=== PATIENT | male | born 1945 | race Caucasian/White ===

== ENCOUNTER 2020-11-29 08:10 | Outpatient (REF) | payer MEDICARE, SELFPAY ==
--- NOTE | 2020-11-29 08:14 | CT_ITS ---
EXAMINATION: CT CHEST SCREENING CLINICAL INFORMATION: Nicotine dependence. Follow-up. COMPARISON: CT chest 11/26/2019. TECHNIQUE: Multidetector volumetric CT imaging of the chest is performed without contrast using low dose technique. Additional 2D coronal and sagittal reformatted images and axial 3D maximum intensity projection (MIP) images are generated on the CT workstation. This CT examination was performed using dose optimization techniques as appropriate, variously including the following: *Automated exposure control *Adjustment of mA and/or kV according to patient size (this includes techniques or standardized protocols for targeted exams where dose is matched to indication/reason for exam; i.e. extremities or head) *Use of iterative reconstruction technique DLP: 61 mGy-cm. FINDINGS: LUNGS: The lungs are well expanded and clear of acute pneumonic consolidation. There is a 2 mm nodule right upper lobe, axial image 12/5, stable. No additional pulmonary nodules seen. There is no mass or consolidation. There is band-like atelectasis in the anterobasal segment left lower lobe. MEDIASTINUM: Heart size and the great vessels are normal caliber. Central trachea and the bronchial airway are widely patent. No abnormal-sized mediastinal lymph nodes or mass seen. Ascending aorta is normal caliber. No pericardial effusion seen. PLEURA: There is no pleural effusion. No pleural mass or thickening. AXILLA: No lymphadenopathy. UPPER ABDOMEN: Visualized liver, spleen, pancreas and bilateral adrenal glands are unremarkable. OSSEOUS STRUCTURES: There is mild ventricles calcification of anterior longitudinal ligament in mid thoracic spine. No fracture or lytic process seen. There are large T12-L1 and L1-L2 bridging osteophytes. CT/CT lung screening IMPRESSION: No acute process. 2 mm nodule right upper lobe, stable. Band-like atelectasis left lower lobe. ASSESSMENT: Lung-RADS category 2: Benign. RECOMMENDATION: Low-dose annual CT chest exam.
== END 2020-11-29 08:11 | disposition home or self-care (01) ==
LOC: HO.CT 08:10
PROVIDERS: PCP Internal Medicine; Visit Provider Physician Assistant Medical
DX: Z12.2 Encounter for screening for malignant neoplasm of respiratory organs (principal); F17.210 Nicotine dependence, cigarettes, uncomplicated
CPT/HCPCS: 71271

== ENCOUNTER 2021-05-31 07:41 | Outpatient (REF) | payer MEDICARE, SELFPAY ==
[2021-05-31 11:33] LABS: Alanine Aminotransferase 16 U/L (0-40); Albumin Level 3.8 g/dL (3.5-5.0); Alkaline Phosphatase 69 U/L (39-117); Anion Gap 14 (12-20); Aspartate Amino Transferase 17 U/L (5-37); Bilirubin Total 0.6 mg/dL (0.0-1.0); Blood Urea Nitrogen 12 mg/dL (9-16); Calcium 9.5 mg/dL (8.4-10.2); Carbon Dioxide 27 mmol/L (22-29); Chloride 103 mmol/L (96-108); Cholesterol 155 mg/dL; Estimated Glomerular Filt Rate > 60; Glucose Fasting 119 mg/dL (60-99); HDL Cholesterol 46 mg/dL; LDL Cholesterol Calculated 95 mg/dl; Potassium 4.6 mmol/L (3.3-5.1); Sodium 139 mmol/L (135-145); Total Protein 9.5 g/dL (6.5-8.0); Triglycerides 72 mg/dL
== END 2021-05-31 07:42 | disposition home or self-care (01) ==
LOC: HO.HMGCLDS 07:41
PROVIDERS: PCP Internal Medicine; Visit Provider Internal Medicine
DX: I10 Essential (primary) hypertension (principal)
CPT/HCPCS: 36415; 80053; 80061

== ENCOUNTER 2021-10-31 09:37 | Outpatient (REF) | payer MEDICARE, SELFPAY ==
[2021-10-31 11:33] LABS: MANUAL DIFF FLAG NO
[2021-10-31 11:40] LABS: Basophils Absolute Auto 0.1 X10*3/uL (0.0-0.2); Basophils Percent Auto 1.5 % (0-2); Eosinophils Absolute Auto 0.2 X10*3/uL (0.0-0.4); Eosinophils Percent Auto 3.6 % (0-4); Hemoglobin 16.1 g/dl (14.0-18.0); Imm Gran Abs Auto 0.03 X10*3/uL (0.00-0.03); Imm Gran Pct Auto 0.5 % (0.0-0.4); Lymphocytes Percent Auto 32.1 % (20-40); Mean Corpuscular HGB Conc 32.2 g/dl (31.0-36.0); Mean Corpuscular Hemoglobin 31.3 pg (27.0-33.0); Mean Corpuscular Volume 97.1 fL (80.0-98.0); Mean Platelet Volume 9.5 fL (9.4-12.4); Monocytes Absolute Auto 0.8 X10*3/uL (0.1-1.2); Monocytes Percent Auto 12.7 % (2-11); Neutrophils Percent Auto 49.6 % (45-73); Platelet Count 295 X10*3/uL (160-400); Red Blood Count 5.15 X10*6/uL (4.60-5.80); Red Cell Distribution Width 11.9 % (11.0-16.0); White Blood Count 6.1 X10*3/uL (4.8-10.8)
[2021-10-31 11:53] LABS: Estimated Average Glucose 114 mg/dL; Hemoglobin A1c % 5.6 %
[2021-10-31 11:58] LABS: Alanine Aminotransferase 25 U/L (0-40); Albumin Level 3.8 g/dL (3.5-5.0); Alkaline Phosphatase 73 U/L (39-117); Anion Gap 11 (12-20); Aspartate Amino Transferase 20 U/L (5-37); Bilirubin Total 0.6 mg/dL (0.0-1.0); Blood Urea Nitrogen 14 mg/dL (9-16); Calcium 9.7 mg/dL (8.4-10.2); Carbon Dioxide 31 mmol/L (22-29); Chloride 101 mmol/L (96-108); Cholesterol 173 mg/dL; Estimated Glomerular Filt Rate > 60; Glucose Fasting 101 mg/dL (60-99); HDL Cholesterol 50 mg/dL; LDL Cholesterol Calculated 100 mg/dl; Potassium 4.6 mmol/L (3.3-5.1); Sodium 138 mmol/L (135-145); Total Protein 9.6 g/dL (6.5-8.0); Triglycerides 115 mg/dL
[2021-11-02 03:51] LABS: IgA 58 mg/dL (70-320); IgG 570 mg/dL (600-1540); IgM 4468 mg/dL (50-300)
== END 2021-10-31 09:38 | disposition home or self-care (01) ==
LOC: HO.HMGCLDS 09:37
PROVIDERS: PCP Internal Medicine; Visit Provider Internal Medicine
DX: R73.01 Impaired fasting glucose (principal); C88.0 Waldenstrom macroglobulinemia; I10 Essential (primary) hypertension
CPT/HCPCS: 36415; 80053; 80061; 82784; 83036; 85025

== ENCOUNTER → 2021-11-22 09:01 | Outpatient (BNV) | payer MEDICARE, SELFPAY | PROVIDERS: PCP Internal Medicine; Visit Provider Internal Medicine | DX: D50.9 Iron deficiency anemia, unspecified (principal) | CPT/HCPCS: 99212; 99214; G2211 ==

== ENCOUNTER 2021-12-12 08:59 | Outpatient (REF) | payer MEDICARE, SELFPAY ==
--- NOTE | ~2021-12-12 | CT_ITS ---
EXAMINATION: CT CHEST SCREENING CLINICAL INFORMATION: Smoker for 30 years. Two PACS a day. COMPARISON: CT chest 11/29/2020. TECHNIQUE: Multidetector volumetric CT imaging of the chest is performed without contrast using low dose technique. Additional 2D coronal and sagittal reformatted images and axial 3D maximum intensity projection (MIP) images are generated on the CT workstation. This CT examination was performed using dose optimization techniques as appropriate, variously including the following: *Automated exposure control *Adjustment of mA and/or kV according to patient size (this includes techniques or standardized protocols for targeted exams where dose is matched to indication/reason for exam; i.e. extremities or head) *Use of iterative reconstruction technique DLP: 64 mGy-cm FINDINGS: LUNGS: The lungs are well expanded and clear of acute pneumonic process. There is a 2 mm peripherally-based nodule right upper lobe axial image 127/7. No additional lung nodule seen. There is no acute consolidation or mass. There is band-like atelectasis left lower lobe, stable. MEDIASTINUM: The central trachea and bronchi are widely patent. The thyroid lobes are symmetrical and normal. No abnormal-sized mediastinal or hilar lymph node seen. There is no pericardial effusion. Heart size and the great vessels are normal caliber. PLEURA: There is no pleural effusion. No pleural mass or thickening. AXILLA: No abnormal axillary lymph node seen. UPPER ABDOMEN: Visualized liver, spleen, pancreas and bilateral adrenal glands are unremarkable. OSSEOUS STRUCTURES: There is no lytic or sclerotic process seen. There is calcification of anterior longitudinal ligament. CT/CT lung screening IMPRESSION: 2 mm peripheral-based nodule right upper lobe, stable. Minimal bandlike atelectasis left lower lobe. ASSESSMENT: Lung-RADS category 2: Benign RECOMMENDATION: Low-dose annual CT chest.
== END 2021-12-12 09:00 | disposition home or self-care (01) ==
LOC: HO.CT 08:59
PROVIDERS: PCP Internal Medicine; Visit Provider Physician Assistant Medical
DX: Z12.2 Encounter for screening for malignant neoplasm of respiratory organs (principal); F17.200 Nicotine dependence, unspecified, uncomplicated
CPT/HCPCS: 71271

== ENCOUNTER 2022-05-15 09:32 | Outpatient (REF) | payer MEDICARE, SELFPAY ==
[2022-05-15 11:26] LABS: Hematocrit 50.7 % (42.0-52.0); Hemoglobin 16.4 g/dl (14.0-18.0); Mean Corpuscular HGB Conc 32.3 g/dl (31.0-36.0); Mean Corpuscular Volume 95.8 fL (80.0-98.0); Mean Platelet Volume 9.8 fL (9.4-12.4); Platelet Count 278 X10*3/uL (160-400); Red Blood Count 5.29 X10*6/uL (4.60-5.80); Red Cell Distribution Width 12.5 % (11.0-16.0); White Blood Count 6.2 X10*3/uL (4.8-10.8)
[2022-05-15 12:08] LABS: Alanine Aminotransferase 15 U/L (0-40); Albumin Level 3.8 g/dL (3.5-5.0); Alkaline Phosphatase 71 U/L (39-117); Anion Gap 16 (12-20); Aspartate Amino Transferase 16 U/L (5-37); Bilirubin Total 0.8 mg/dL (0.0-1.0); Blood Urea Nitrogen 13 mg/dL (9-16); Calcium 9.6 mg/dL (8.4-10.2); Carbon Dioxide 23 mmol/L (22-29); Chloride 103 mmol/L (96-108); Estimated Glomerular Filt Rate > 60; Glucose Random 134 mg/dL (60-115); Potassium 4.8 mmol/L (3.3-5.1); Sodium 137 mmol/L (135-145); Total Protein 9.7 g/dL (6.5-8.0)
[2022-05-20 03:37] LABS: IgA 54 mg/dL (70-320); IgG 598 mg/dL (600-1540); IgM 5073 mg/dL (50-300)
[2022-05-21 07:15] LABS: Viscosity 3.2
== END 2022-05-15 09:33 | disposition home or self-care (01) ==
LOC: HO.HMGCLDS 09:32
PROVIDERS: PCP Internal Medicine; Visit Provider Internal Medicine
DX: C88.0 Waldenstrom macroglobulinemia (principal)
CPT/HCPCS: 36415; 80053; 82784; 85027; 85810; 86334

== ENCOUNTER 2022-10-06 12:07 | Outpatient (AMB) | payer MEDICARE, SELFPAY ==
[2022-10-06 12:32] VITALS: BP 146/78; PULSE 87; O2SAT 98; BMI 26.6
--- NOTE | 2022-10-06 12:32 | MHC.PC.OV ---
Vital Signs 10/06/22 12:32 Height 5 ft 10 in Weight 186 lb BMI 26.6 BP 146/78 H Blood Pressure Location Rt brachial Position Sitting Pulse 87 Pulse Source Pulse Oximeter Pulse Oximetry (%) 98 Oxygen Delivery Method Room Air Intake Visit Reasons: Annual Physical, Discuss/Bill ACP Intake Note: Pt is here today for his PE Allergies No Known Allergies [No Known Allergies*] Allergy (Verified 10/08/23 10:04) Medication List - Last Reconciled 08/02/23 by Shruti Landon MD cholecalciferol (vitamin D3) 25 mcg PO DAILY lisinopril 5 mg PO QAM 90 days omega-3 fatty acids (Fish Oil Concentrate) 1,000 mg PO DAILY Tobacco use date assessed: 10/06/22 Fall risk assessment: No Falls in past year Last assessed Fall Risk: 10/06/22 HPI Annual Physical, Discuss/Bill ACP HPI Details 77-year-old male with Hypertension, Waldenstroms macroglobulinemia, history of alcohol use disorder and current smoker, presents today for his physical exam. He is currently being followed by hematology, still continues to smoke cigarettes, with no desire to quit at present time and states that he has just been drinking beer occasionally on weekends when he is with his buddies. States that he has been feeling well, with no chest pain no lightheadedness, no chest pressure, no headaches reported. [facility] Medical History Annual visit for general adult medical examination with abnormal findings Right renal mass Impaired fasting glucose Tubular adenoma of colon Smoker unmotivated to quit Monoclonal gammopathy Alcohol use disorder Waldenstrom macroglobulinemia History of subdural hematoma (post traumatic) Essential hypertension Surgical History No pertinent past surgical history Family History Father History of heart attack CVD (cardiovascular disease) Maternal Grandfather Diabetes mellitus Maternal Grandmother Colon cancer Paternal Grandfather History of heart attack Sister No problems noted. Sister No problems noted. Sister No problems noted. Son No problems noted. Son No problems noted. Daughter No problems noted. Daughter No problems noted. Other Substance abuse Social History Household Members: Spouse and Significant Other Housing: House Patient Tobacco Use Status: Current everyday Tobacco user Tobacco use type: Cigarette Cigarette Packs Per Day: 0.5 Years Smoked: 51 e-Cigarette/Vaping Use: Never Used Second Hand Smoke Exposure: No service: No Current occupational status: retired Current occupation: [employer] Cognitive needs: No Hearing needs: No Vision needs: Yes Questionnaire PHQ-9 Over the last 2 weeks, how often have you been bothered by any of the following problems? Depression Screening Interpretation: Negative Source: Developed by Drs. Deshawn Brooks, Bharti Oglesby, Torres Marrero and colleagues, with an educational nancy from [employer]. Thrive Questionnaire Date Thrive assessed: 06/30/22 CHRISTINA-7 AMB Questionnaire CHRISTINA-7 Date CHRISTINA - 7 assessed: 06/30/22 Source: Developed by Drs. Deshawn Brooks, Bharti Oglesby, Torres Marrero and colleagues, with an educational nancy from [employer]. 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 Denies change in vision ENT Reports Normal hearing present, Denies dizziness, Denies headache(s), Denies nasal congestion, Denies nasal discharge and Denies sore throat Card Denies chest pain, Denies lightheadedness, Denies palpitations and Denies dyspnea Resp Denies chest congestion, Denies cough, Denies dyspnea and Denies wheezing GI Denies abdominal pain, Denies change in bowel habits and Denies heartburn Reports no additional complaints Musc Denies arthralgias, Denies joint swelling and Denies stiffness Skin/Breast Denies lesions and Denies rash Neuro Reports Normal hearing present, Denies dizziness, Denies headache(s), Denies Sensory deficit (Neuro) and Denies weakness Psych Reports no additional complaints Endo Denies fatigue, Denies polydipsia, Denies polyuria and Denies palpitations Aly/Lymph Denies easy bruising Aller/Immun Denies seasonal rhinorrhea and Denies wheezing Physical exam (Primary Care) Vital Signs: Last Vital Signs Pulse 87 10/06/22 12:32 BP 146/78 H 10/06/22 12:32 Pulse Ox 98 10/06/22 12:32 Oxygen Delivery Method Room Air 10/06/22 12:32 BMI result Body Mass Index 26.6 Tobacco/Smoking Status: Tobacco use Status Tobacco use date assessed 10/06/22 10/06/22 12:37 Patient Tobacco Use Status Current everyday Tobacco 10/06/22 12:33 Tobacco use type Cigarette 10/06/22 12:33 e-Cigarette/Vaping Use Never Used 10/06/22 12:33 Depression Screening Interpretation: Negative Thrive Assessment: Date of Thrive Assessment Date Thrive assessed 06/30/22 10/06/22 12:33 Advance Care Planning discussion: Completed/Scanned Date of discussion: 10/06/22 Who was present: Patient Forms completed: Health Care Proxy and MOLST Time spent: 16-45 minutes Actual minutes spent: 16 Const General: cooperative, no acute distress and alert Orientation/consciousness: patient oriented x3 Limitations: No altered mental status HENMT Head: Yes normal to inspection General nose exam: Normal external nose present Face and sinus: Yes face symmetric Mouth: Normal oral and palatal mucosa present and moist mucous membranes Neck Neck: Yes full ROM and Yes no lymphadenopathy Thyroid: Thyroid normal Resp Effort & Inspection: normal respiratory effort and able to speak in complete sentences Auscultation: clear to auscultation bilaterally Cardio Jugular venous distension: no JVD Rate: regular rate Rhythm: regular rhythm Heart sounds: S1 normal heart sound present and S2 normal heart sound present GI Palpation (GI): Soft to palpation, nontender, no guarding and no masses Auscultation: normal bowel sounds General: Yes no CVA tenderness Male General Exam: Yes normal external exam Back/Spine/Pelvis Back: no CVA tenderness and No back tenderness Skin General skin exam: no rashes or lesions noted Neuro General: patient oriented x3, gait normal, moves all extremities, no focal motor deficits and CN's II-XI intact bilaterally Cranial nerves: Yes Normal hearing present Cognition (Neuro): normal cognition Gait exam (Neuro): Normal gait present Motor exam (neuro): 5/5 motor strength present throughout Sensory Exam: No Sensory deficit (Neuro) Extrem General: Yes normal to inspection, Yes full ROM, Yes no pedal edema and Yes normal gait Psych Appearance: grossly normal and well kempt Mental Status: mental status grossly normal Speech and movement: Normal speech and movement present Affect: normal affect Thought process: Normal thought process present Thought content: Normal thought content present Assessment and Plan Assessment & Plan (1) Annual visit for general adult medical examination with abnormal findings: Code(s): Z00.01 - Encounter for general adult medical examination with abnormal findings Plan: Will check appropriate labs. Recommended dental visit every 6 months and regular eye exams, at least every 2 years. Take adequate calcium in diet and vitamin-D 3 at 2000 IU per cap once a day, in addition to weight-bearing exercises to help maintain go up-to-date with all his vaccination od muscle tone and weight control. Instructed to do s soft testicular exam to check for any mass. Due for repeat colonoscopy in 2023. (2) Essential hypertension: Code(s): I10 - Essential (primary) hypertension Plan: Blood pressure elevated today, but still within acceptable range. Will continue on lisinopril 5 mg daily in a.m., reinforced importance of following a low-salt diet and smoking cessation as well as avoiding alcohol completely (3) Tubular adenoma of colon: Code(s): D12.6 - Benign neoplasm of colon, unspecified Plan: Due again for repeat screening colonoscopy in 2023 (4) Smoker unmotivated to quit: Code(s): F17.200 - Nicotine dependence, unspecified, uncomplicated Plan: Patient strongly advised to stop smoking, as smoking damages blood vessels, degenerative of joints and spine, damage to lungs and heart., predisposes to developing certain cancers like lung, breast, bladder, colon. Recommended to try decreasing cigarette use by 1-2 cigarettes a day. Advised to monitor what triggers are for smoking so that this can be discussed on the next office visit. We can discuss different options to quit smoking when ready. (5) Impaired fasting glucose: Code(s): R73.01 - Impaired fasting glucose Plan: Your fasting blood sugars elevated above 100 mg/dL. Will check hemoglobin A1c. Impaired glucose metabolism O2 at risk for developing diabetes mellitus type 2, as well as heart attack and stroke later on. Lifestyle changes at just weight loss, healthy eating habits, and regular exercise are important, and can prevent the progression to diabetes (6) Waldenstrom macroglobulinemia: Code(s): C88.0 - Waldenstrom macroglobulinemia Plan: Followed by hematology (7) Alcohol use disorder: Plan: Strongly advised to abstain from any alcohol intake (8) Advanced directives, counseling/discussion: Code(s): Z71.89 - Other specified counseling Plan: Initiated the conversation about Advanced Directives. Advanced Directives help patients prepare for current and future decisions about their medical treatment and place of care. Discussed with patient that it is a process where a patients current condition and prognosis are reviewed, their wishes for information regarding their illness are elicited, and likely medical dilemmas are presented and options discussed. Healthcare proxy MOLST form completed today. These forms can be amended as needed, reviewed yearly and make changes as needed Orders: Orders Alanine Aminotransferase 10/10/22 I10 - Essential (primary) hypertension, R73.01 - Impaired fasting glucose, Z00.01 - Encounter for general adult medical examination with abnormal findings PSA,Total (Free>4and<10) 10/10/22 I10 - Essential (primary) hypertension, R73.01 - Impaired fasting glucose, Z00.01 - Encounter for general adult medical examination with abnormal findings Basic Metabolic Panel Fasting 10/10/22 I10 - Essential (primary) hypertension, R73.01 - Impaired fasting glucose, Z00.01 - Encounter for general adult medical examination with abnormal findings Aspartate Amino Transferase 10/10/22 I10 - Essential (primary) hypertension, R73.01 - Impaired fasting glucose, Z00.01 - Encounter for general adult medical examination with abnormal findings Lipid Panel 10/10/22 I10 - Essential (primary) hypertension, R73.01 - Impaired fasting glucose, Z00.01 - Encounter for general adult medical examination with abnormal findings Vitamin D 25-OH Total 10/10/22 I10 - Essential (primary) hypertension, R73.01 - Impaired fasting glucose, Z00.01 - Encounter for general adult medical examination with abnormal findings Coding Level of Care Code Est Pt Prev Care >65y(64868) Diagnoses Annual visit for general adult medical examination with abnormal findings Z00.01 Essential hypertension I10 Tubular adenoma of colon D12.6 Smoker unmotivated to quit F17.200 Impaired fasting glucose R73.01 Waldenstrom macroglobulinemia C88.0 Alcohol use disorder F10.90 Advanced directives, counseling/discussion Z71.89 Additional Codes Vital Signs *Quality* - Advance Care Planning discussion: Completed/Scanned ([id number]) Vital Signs *Quality* - Time spent: 16-45 minutes ([id number])
== END 2022-10-06 13:34 | disposition home or self-care (01) ==
LOC: HO.HMGC 12:07
PROVIDERS: PCP Internal Medicine; Visit Provider Internal Medicine
DX: Z00.00 Encounter for general adult medical examination without abnormal findings (principal); C88.0 Waldenstrom macroglobulinemia; I10 Essential (primary) hypertension; D12.6 Benign neoplasm of colon, unspecified; F17.210 Nicotine dependence, cigarettes, uncomplicated; R73.01 Impaired fasting glucose; F10.90 Alcohol use, unspecified, uncomplicated
CPT/HCPCS: 99397; 99497

== ENCOUNTER 2022-10-10 06:54 | Outpatient (REF) | payer MEDICARE, SELFPAY ==
[2022-10-10 13:41] LABS: Alanine Aminotransferase 15 U/L (0-40); Anion Gap 11 (12-20); Aspartate Amino Transferase 14 U/L (5-37); Blood Urea Nitrogen 13 mg/dL (9-16); Calcium 9.8 mg/dL (8.4-10.2); Carbon Dioxide 31 mmol/L (22-29); Chloride 102 mmol/L (96-108); Cholesterol 143 mg/dL; Estimated Glomerular Filt Rate > 60; Glucose Fasting 135 mg/dL (60-99); HDL Cholesterol 47 mg/dL; LDL Cholesterol Calculated 82 mg/dl; PSA,Total (Free>4and<10) 1.58 ng/mL (0.00-4.00); Sodium 139 mmol/L (135-145); Triglycerides 71 mg/dL; Vitamin D 25-OH Total 30.5 ng/mL (>30)
== END 2022-10-10 06:55 | disposition home or self-care (01) ==
LOC: HO.HMGCLDS 06:54
PROVIDERS: PCP Internal Medicine; Visit Provider Internal Medicine
DX: Z00.01 Encounter for general adult medical examination with abnormal findings (principal); Z12.5 Encounter for screening for malignant neoplasm of prostate; I10 Essential (primary) hypertension; R73.01 Impaired fasting glucose
CPT/HCPCS: 36415; 80048; 80061; 82306; 84153; 84450; 84460

== ENCOUNTER 2023-04-09 10:32 | Outpatient (AMB) | payer MEDICARE, SELFPAY ==
--- NOTE | 2023-04-09 11:21 | MHC.PC.OV ---
Vital Signs 04/09/23 11:22 Height 5 ft 10 in Weight 192 lb BMI 27.5 BP 128/64 Blood Pressure Location Lt brachial Position Sitting Pulse 78 Pulse Source Pulse Oximeter Pulse Oximetry (%) 95 Oxygen Delivery Method Room Air Intake Visit Reasons: 6 month follow up, HTN Intake Note: Pt is here today for his 6 months f/u HTN Allergies No Known Allergies [No Known Allergies*] Allergy (Verified 10/08/23 10:04) Medication List - Last Reconciled 04/09/23 by Shruti Landon MD cholecalciferol (vitamin D3) 25 mcg PO DAILY lisinopril 5 mg PO QAM 90 days omega-3 fatty acids (Fish Oil Concentrate) 1,000 mg PO DAILY Tobacco use date assessed: 04/09/23 Fall risk assessment: No Falls in past year Last assessed Fall Risk: 04/09/23 HPI 6 month follow up, HTN HPI Details 77-year-old male with hypertension, here today for follow-up. He has been taking lisinopril 5 mg once a day in the morning, blood pressure has been running within normal limits. He has been feeling well with no complaints at present time. [facility] Medical History Annual visit for general adult medical examination with abnormal findings Right renal mass Impaired fasting glucose Tubular adenoma of colon Smoker unmotivated to quit Monoclonal gammopathy Alcohol use disorder Waldenstrom macroglobulinemia History of subdural hematoma (post traumatic) Essential hypertension Surgical History No pertinent past surgical history Family History Father History of heart attack CVD (cardiovascular disease) Maternal Grandfather Diabetes mellitus Maternal Grandmother Colon cancer Paternal Grandfather History of heart attack Sister No problems noted. Sister No problems noted. Sister No problems noted. Son No problems noted. Son No problems noted. Daughter No problems noted. Daughter No problems noted. Other Substance abuse Social History Household Members: Spouse and Significant Other Housing: House Patient Tobacco Use Status: Current everyday Tobacco user Tobacco use type: Cigarette Cigarette Packs Per Day: 0.5 Years Smoked: 51 e-Cigarette/Vaping Use: Never Used Second Hand Smoke Exposure: No service: No Current occupational status: retired Current occupation: [employer] Cognitive needs: No Hearing needs: No Vision needs: Yes Questionnaire Thrive Questionnaire Date Thrive assessed: 06/30/22 AUDIT C Alcohol Use Questionnaire (AUDIT-C) 1. How often do you have a drink containing alcohol?: Monthly or less 2. How many drinks containing alcohol do you have on a typical day when you are drinking?: 1 or 2 3. How often do you have six or more drinks on one occasion?: Never Total Score: 1 CHRISTINA-7 AMB Questionnaire CHRISTINA-7 Date CHRISTINA - 7 assessed: 06/30/22 Source: Developed by Drs. Deshawn Brooks, Bharti Oglesby, Torres Marrero and colleagues, with an educational nancy from [employer]. Review of Systems Const Denies body aches, Denies fever(s), Denies headache(s) and Denies weakness ENT Reports Normal hearing present, Denies dizziness, Denies headache(s) and Denies nasal congestion Card Denies chest pain, Denies lightheadedness and Denies dyspnea Resp Denies chest congestion, Denies cough and Denies dyspnea GI Denies abdominal pain, Denies change in bowel habits and Denies heartburn Reports no additional complaints Musc Denies arthralgias, Denies joint swelling and Denies stiffness Neuro Reports Normal hearing present, Denies dizziness, Denies headache(s), Denies Sensory deficit (Neuro) and Denies weakness Physical exam (Primary Care) Vital Signs: Last Vital Signs Pulse 78 04/09/23 11:22 BP 128/64 04/09/23 11:22 Pulse Ox 95 04/09/23 11:22 Oxygen Delivery Method Room Air 04/09/23 11:22 BMI result Body Mass Index 27.5 Tobacco/Smoking Status: Tobacco use Status Tobacco use date assessed 04/09/23 04/09/23 11:26 Patient Tobacco Use Status Current everyday Tobacco 04/09/23 11:26 Tobacco use type Cigarette 04/09/23 11:26 e-Cigarette/Vaping Use Never Used 04/09/23 11:26 Thrive Assessment: Date of Thrive Assessment Date Thrive assessed 06/30/22 04/09/23 11:26 Const General: cooperative, no acute distress and alert Orientation/consciousness: patient oriented x3 HENMT Head: Yes normal to inspection General nose exam: Normal external nose present Face and sinus: Yes face symmetric Mouth: Normal oral and palatal mucosa present and moist mucous membranes Neck Neck: Yes full ROM and Yes no lymphadenopathy Thyroid: Thyroid normal Resp Effort & Inspection: normal respiratory effort and able to speak in complete sentences Auscultation: clear to auscultation bilaterally Cardio Jugular venous distension: no JVD Rate: regular rate Rhythm: regular rhythm Heart sounds: S1 normal heart sound present and S2 normal heart sound present GI Palpation (GI): Soft to palpation, nontender, no guarding and no masses Auscultation: normal bowel sounds Neuro General: patient oriented x3, gait normal, moves all extremities, no focal motor deficits and CN's II-XI intact bilaterally Cranial nerves: Yes Normal hearing present Cognition (Neuro): normal cognition Gait exam (Neuro): Normal gait present Motor exam (neuro): 5/5 motor strength present throughout Sensory Exam: No Sensory deficit (Neuro) Extrem General: Yes normal to inspection, Yes full ROM, Yes no pedal edema and Yes normal gait Results Reviewed Results Reviewed: ENTERED: 01/19/[address]: Shruti Landon MD ORDERED: CMP Test Result Flag Reference Sodium 138 135-145 mmol/L Potassium 4.8 3.3-5.1 mmol/L Slight Hemolysis CL 104 96-108 mmol/L CO2 23 22-29 mmol/L Gap 16 12-20 BUN 14 9-16 mg/dL Creat 0.87 0.5-1.4 mg/dL Estimated CrCl 72.2 eGFR (calculated from the MDRD study equation) and eCrCl (calculated from the Cockcroft-Gault equation) are based on different parameters and may not yield comparable results. If eCrCl result is absurd, please check patient's height/weight. EGFR > 60 NOTE: For -[place] individuals, multiply the result by 1.210. Chronic Kidney Disease: Estimated GFR < 60 mL/min/1.73m2 Severe Kidney Disease: Estimated GFR < 15 mL/min/1.73m2 Glucose, Random 127 H 60-115 mg/dL CA 9.3 # 8.4-10.2 mg/dL Total Bili 0.5 0.0-1.0 mg/dL AST (GOT) 25 5-37 U/L Slight Hemolysis ALT (GPT) 17 0-40 U/L Protein, Total 9.5 H 6.5-8.0 g/dL Alb 3.7 3.5-5.0 g/dL Alk Phos 68 39-117 U/L Assessment and Plan Assessment & Plan (1) Essential hypertension: Code(s): I10 - Essential (primary) hypertension Plan: Blood pressure at goal of less than 130/80. Continue with current medication. Reinforced importance of following a low sodium diet, getting regular exercise, and lowering stress levels. (2) Impaired fasting glucose: Code(s): R73.01 - Impaired fasting glucose Plan: Previous fasting glucose in the past were elevated above 100 mg/dL. Will check hemoglobin A1c on next lab order. Your fasting blood sugars elevated above 100 mg/dL. Impaired glucose metabolism O2 at risk for developing diabetes mellitus type 2, as well as heart attack and stroke later on. Lifestyle changes at just weight loss, healthy eating habits, and regular exercise are important, and can prevent the progression to diabetes Orders: Orders Alanine Aminotransferase 04/09/23 I10 - Essential (primary) hypertension, R73.01 - Impaired fasting glucose Aspartate Amino Transferase 04/09/23 I10 - Essential (primary) hypertension, R73.01 - Impaired fasting glucose Hemoglobin A1c 04/09/23 I10 - Essential (primary) hypertension, R73.01 - Impaired fasting glucose Glucose Fasting 04/09/23 I10 - Essential (primary) hypertension, R73.01 - Impaired fasting glucose Lipid Panel 04/09/23 I10 - Essential (primary) hypertension, R73.01 - Impaired fasting glucose Coding Level of Care Code Est Pt Level 3 (57694) Diagnoses Essential hypertension I10 Impaired fasting glucose R73.01
[2023-04-09 11:22] VITALS: BP 128/64; PULSE 78; O2SAT 95; BMI 27.5
== END 2023-04-09 12:21 | disposition home or self-care (01) ==
LOC: HO.HMGC 10:32
PROVIDERS: PCP Internal Medicine; Visit Provider Internal Medicine
DX: I10 Essential (primary) hypertension (principal); R73.01 Impaired fasting glucose
CPT/HCPCS: 99213

== ENCOUNTER 2023-10-08 09:14 | Outpatient (AMB) | payer MEDICARE, SELFPAY ==
--- NOTE | 2023-10-08 09:33 | MHC.PC.OV ---
Vital Signs 10/08/23 09:34 Height 5 ft 10 in Weight 196 lb 2 oz BMI 28.1 BP 140/72 H Blood Pressure Location Rt brachial Position Sitting Pulse 86 Pulse Source Pulse Oximeter Pulse Oximetry (%) 96 Oxygen Delivery Method Room Air Intake Visit Reasons: PE Intake Note: pt is here for his Annual PE Allergies No Known Allergies [No Known Allergies*] Allergy (Verified 10/08/23 10:04) Medication List - Last Reconciled 10/08/23 by Shruti Landon MD cholecalciferol (vitamin D3) 25 mcg PO DAILY lisinopril 5 mg PO QAM 90 days omega-3 fatty acids (Fish Oil Concentrate) 1,000 mg PO DAILY Tobacco use date assessed: 10/08/23 Fall risk assessment: No Falls in past year Last assessed Fall Risk: 10/08/23 Dental Screening Dental Screen Date: 10/08/23 Did you have a dental visit in the last 12 months?: No Did you have a dental problem in the last 6 months where you did not have access to dental care?: No Was dental information given to patient?: No HPI PE HPI Details 77-year-old male with hypertension, prediabetes, Waldenstrom's macroglobulinemia, history of alcohol dependence, and is a current cigarette smoker unmotivated to quit, here today for his physical exam. He is compliant with taking his medication currently on lisinopril, blood pressure slightly elevated today, but patient states that he just took his medicine before coming to the clinic. He is currently being followed by Dr. Lee for his Macroglobulinemia. He has history of an incidental finding of her right renal mass on CT scan last year, was referred to urology but patient did not keep that appointment. Will order another renal ultrasound to follow-up on the right renal mass . He currently is being seen by Neva Rousseau at thoracic surgery clinic for lung cancer screening, and had an order to get a repeat low-dose CT scan of the lung done August 2023 but patient declined to get testing done, as per [facility] scheduling , patient declined test and feels that he does not need it anymore. Continues to smoke cigarettes, states that he has cut down to just less than half a pack a day. He also drinks when he is out with his family and friends, but not on a daily basis as before. 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 Sister No problems noted. Sister No problems noted. Son No problems noted. Son No problems noted. Daughter No problems noted. Daughter No problems noted. Other Substance abuse Social History Household Members: Spouse and Significant Other Housing: House Patient Tobacco Use Status: Current everyday Tobacco user Tobacco use type: Cigarette Cigarette Packs Per Day: 0.5 Years Smoked: 51 e-Cigarette/Vaping Use: Never Used Second Hand Smoke Exposure: No service: No Current occupational status: retired Current occupation: [employer] Cognitive needs: No Hearing needs: No Vision needs: Yes Questionnaire PHQ-9 Over the last 2 weeks, how often have you been bothered by any of the following problems? 1. Little interest or pleasure in doing things: not at all 2. Feeling down, depressed, or hopeless: not at all 3. Trouble falling or staying asleep, or sleeping too much: not at all 4. Feeling tired or having little energy: not at all 5. Poor appetite or overeating: not at all 6. Feeling bad about yourself - or that you are a failure or have let yourself or your family down: not at all 7. Trouble concentrating on things, such as reading the newspaper or watching television: not at all 8. Moving or speaking so slowly that other people could have noticed. Or the opposite - being so fidgety or restless that you have been moving around a lot more than usual: not at all 9. Thoughts that you would be better off or of hurting yourself in some way: not at all Total score: 0 Depression Screening Interpretation: Negative Depression Screening Done: Yes 95294 - PHQ-9 Billing: Yes Source: Developed by Drs. Deshawn Brooks, Bharti Oglesby, Torres Marrero and colleagues, with an educational nancy from [employer]. Thrive Questionnaire Date Thrive assessed: 10/08/23 I am a: Patient What is your living situation today?: I have a steady place to live Within the past 12 months, did the food you bought not last and you didn't have the money to get more?: Never true Within the past 12 months, did you worry whether your food would run out before you got money to buy more?: Never true Do you have trouble paying for medicines?: No Do you have trouble getting transportation to medical appointments?: No Do you have trouble paying your heating and electricity bill?: No Do you have trouble taking care of your child, family member or friend?: No Do you have trouble with day-to-day activities such as bathing, preparing meals, shopping, managing finances, etc.?: No Are you currently unemployed and looking for a job?: No Are you interested in more education?: No AUDIT C Alcohol Use Questionnaire (AUDIT-C) 1. How often do you have a drink containing alcohol?: Monthly or less 2. How many drinks containing alcohol do you have on a typical day when you are drinking?: 1 or 2 3. How often do you have six or more drinks on one occasion?: Never Total Score: 1 Score Reviewed/Action Taken: Yes CHRISTINA-7 AMB Questionnaire CHRISTINA-7 Date CHRISTINA - 7 assessed: 10/08/23 Feeling nervous, anxious, or on edge: 0 = Not at all Not being able to stop or control worryin = Not at all Worrying too much about different things: 0 = Not at all Trouble relaxin = Not at all Being so restless that it is hard to sit still: 0 = Not at all Becoming easily annoyed or irritable: 0 = Not at all Feeling afraid as if something awful might happen: 0 = Not at all Total CHRISTINA-7 score (0-4 normal; 5-9 mild; 10-14 moderate; 15-21 severe): 0 Source: Developed by Drs. Deshawn Brooks, Bharti Oglesby, Torres Marrero and colleagues, with an educational nancy from [employer]. 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 Denies change in vision ENT Reports Normal hearing present, Denies dizziness, Denies headache(s) and Denies nasal congestion Card Denies chest pain, Denies lightheadedness, Denies palpitations and Denies dyspnea Resp Denies chest congestion, Denies cough, Denies dyspnea and Denies wheezing GI Denies abdominal pain, Denies change in bowel habits and Denies heartburn Reports no additional complaints Musc Denies arthralgias, Denies joint swelling and Denies stiffness Skin/Breast Denies lesions and Denies rash Neuro Reports Normal hearing present, Denies dizziness, Denies headache(s), Denies Sensory deficit (Neuro) and Denies weakness Psych Reports no additional complaints Endo Denies fatigue, Denies polydipsia, Denies polyuria and Denies palpitations Aly/Lymph Denies easy bruising Aller/Immun Denies seasonal rhinorrhea and Denies wheezing Physical exam (Primary Care) Vital Signs: Last Vital Signs Pulse 86 10/08/23 09:34 BP 140/72 H 10/08/23 09:34 Pulse Ox 96 10/08/23 09:34 Oxygen Delivery Method Room Air 10/08/23 09:34 BMI result Body Mass Index 28.1 Tobacco/Smoking Status: Tobacco use Status Tobacco use date assessed 10/08/23 10/08/23 09:39 Patient Tobacco Use Status Current everyday Tobacco 10/08/23 09:36 Tobacco use type Cigarette 10/08/23 09:36 e-Cigarette/Vaping Use Never Used 10/08/23 09:36 PHQ-9: PHQ-9 Score PHQ-9: Total score 0 10/08/23 10:30 Depression Screening Interpretation: Negative Thrive Assessment: Date of Thrive Assessment Date Thrive assessed 10/08/23 10/08/23 10:26 Advance Care Planning discussion: Exists, not on file Const General: cooperative, no acute distress and alert Orientation/consciousness: patient oriented x3 Limitations: No altered mental status HENMT Head: Yes normal to inspection General nose exam: Normal external nose present Face and sinus: Yes face symmetric Mouth: Normal oral and palatal mucosa present and moist mucous membranes Neck Neck: Yes full ROM and Yes no lymphadenopathy Thyroid: Thyroid normal Resp Effort & Inspection: normal respiratory effort and able to speak in complete sentences Auscultation: clear to auscultation bilaterally Cardio Jugular venous distension: no JVD Rate: regular rate Rhythm: regular rhythm Heart sounds: S1 normal heart sound present and S2 normal heart sound present GI Palpation (GI): Soft to palpation, nontender, no guarding and no masses Auscultation: normal bowel sounds Skin General skin exam: no rashes or lesions noted Neuro General: patient oriented x3, gait normal, moves all extremities, no focal motor deficits and CN's II-XI intact bilaterally Cranial nerves: Yes Normal hearing present Cognition (Neuro): normal cognition Gait exam (Neuro): Normal gait present Motor exam (neuro): 5/5 motor strength present throughout Sensory Exam: No Sensory deficit (Neuro) Extrem General: Yes normal to inspection, Yes full ROM, Yes no pedal edema and Yes normal gait Assessment and Plan Assessment & Plan (1) Annual visit for general adult medical examination with abnormal findings: Code(s): Z00.01 - Encounter for general adult medical examination with abnormal findings Plan: Will check appropriate labs.. Take adequate calcium in diet and vitamin-D 3 at 2000 IU per cap once a day, in addition to weight-bearing exercises to help maintain good muscle tone and weight control. Instructed to do s testicular exam to check for any mass. Up-to-date with his screening colonoscopy and his vaccinations. (2) Right renal mass: Comment: 1.3 x 2 cm right renal mass seen on CT scan Code(s): N28.89 - Other specified disorders of kidney and ureter Plan: Bilateral renal ultrasound ordered use to evaluate right renal mass. (3) Impaired fasting glucose: Code(s): R73.01 - Impaired fasting glucose Plan: Your fasting blood sugars elevated above 100 mg/dL. Impaired glucose metabolism O2 at risk for developing diabetes mellitus type 2, as well as heart attack and stroke later on. Lifestyle changes at just weight loss, healthy eating habits, and regular exercise are important, and can prevent the progression to diabetes (4) Essential hypertension: Code(s): I10 - Essential (primary) hypertension Plan: Blood pressure goal is less than 130/80. Continue with current medication. Reinforced importance of following a low sodium diet, getting regular exercise, and lowering stress levels, strongly advised to quit drinking alcohol and to stop smoking.. (5) Prostate cancer screening: Code(s): Z12.5 - Encounter for screening for malignant neoplasm of prostate Plan: Total PSA level ordered (6) Smoker unmotivated to quit: Code(s): F17.200 - Nicotine dependence, unspecified, uncomplicated Plan: Patient strongly advised to stop smoking, as smoking damages blood vessels, degenerative of joints and spine, damage to lungs and heart., predisposes to developing certain cancers like lung, breast, bladder, colon. Recommended to try decreasing cigarette use by 1-2 cigarettes a day. Advised to monitor what triggers are for smoking so that this can be discussed on the next office visit. We can discuss different options to quit smoking when ready. He has been seen yearly at the thoracic clinic and has been getting yearly low-dose CT scans, an appointment was made for him to have it done but patient declined to get it scheduled this year stating that he does not feel the need to do it anymore (7) Alcohol use disorder: Plan: Strongly advised to cut back again and abstain from alcohol intake, patient states that his just drinking only when out with family and friends (8) Waldenstrom macroglobulinemia: Code(s): C88.0 - Waldenstrom macroglobulinemia Plan: Currently followed by Dr. Lee [facility] Orders: Orders PSA,Total (Free>4and<10) 10/11/23 Z00.01 - Encounter for general adult medical examination with abnormal findings, N28.89 - Other specified disorders of kidney and ureter, R73.01 - Impaired fasting glucose, I10 - Essential (primary) hypertension, Z12.5 - Encounter for screening for malignant neoplasm of prostate Basic Metabolic Panel Fasting 10/11/23 Z00.01 - Encounter for general adult medical examination with abnormal findings, N28.89 - Other specified disorders of kidney and ureter, R73.01 - Impaired fasting glucose, I10 - Essential (primary) hypertension, Z12.5 - Encounter for screening for malignant neoplasm of prostate Alanine Aminotransferase 10/11/23 Z00.01 - Encounter for general adult medical examination with abnormal findings, N28.89 - Other specified disorders of kidney and ureter, R73.01 - Impaired fasting glucose, I10 - Essential (primary) hypertension, Z12.5 - Encounter for screening for malignant neoplasm of prostate Vitamin D 25-OH Total 10/11/23 Z00.01 - Encounter for general adult medical examination with abnormal findings, N28.89 - Other specified disorders of kidney and ureter, R73.01 - Impaired fasting glucose, I10 - Essential (primary) hypertension, Z12.5 - Encounter for screening for malignant neoplasm of prostate Lipid Panel 10/11/23 Z00.01 - Encounter for general adult medical examination with abnormal findings, N28.89 - Other specified disorders of kidney and ureter, R73.01 - Impaired fasting glucose, I10 - Essential (primary) hypertension, Z12.5 - Encounter for screening for malignant neoplasm of prostate Hemoglobin A1c 10/11/23 Z00.01 - Encounter for general adult medical examination with abnormal findings, N28.89 - Other specified disorders of kidney and ureter, R73.01 - Impaired fasting glucose, I10 - Essential (primary) hypertension, Z12.5 - Encounter for screening for malignant neoplasm of prostate Aspartate Amino Transferase 10/11/23 Z00.01 - Encounter for general adult medical examination with abnormal findings, N28.89 - Other specified disorders of kidney and ureter, R73.01 - Impaired fasting glucose, I10 - Essential (primary) hypertension, Z12.5 - Encounter for screening for malignant neoplasm of prostate US renal BI 10/08/23 N28.89 - Other specified disorders of kidney and ureter Coding Level of Care Code Est Pt Prev Care >65y(52345) Diagnoses Annual visit for general adult medical examination with abnormal findings Z00.01 Right renal mass N28.89 Impaired fasting glucose R73.01 Essential hypertension I10 Prostate cancer screening Z12.5 Smoker unmotivated to quit F17.200 Alcohol use disorder F10.90 Waldenstrom macroglobulinemia C88.0 Additional Codes CHRISTINA-7 Assessment Billing - CHRISTINA-7 Assessment Tool: CHRISTINA-7 Assessment 40031 ([id number]) Vital Signs *Quality* - Advance Care Planning discussion: Exists, not on file ([id number])
[2023-10-08 09:34] VITALS: BP 140/72; PULSE 86; O2SAT 96; BMI 28.1
== END 2023-10-08 10:24 | disposition home or self-care (01) ==
PROVIDERS: PCP Internal Medicine; Visit Provider Internal Medicine
DX: Z00.00 Encounter for general adult medical examination without abnormal findings (principal); C88.0 Waldenstrom macroglobulinemia; N28.89 Other specified disorders of kidney and ureter; R73.01 Impaired fasting glucose; I10 Essential (primary) hypertension; F17.210 Nicotine dependence, cigarettes, uncomplicated; F10.90 Alcohol use, unspecified, uncomplicated
CPT/HCPCS: 1123F; 99397

== ENCOUNTER 2023-10-11 06:58 | Outpatient (REF) | payer MEDICARE, SELFPAY ==
[2023-10-11 11:44] LABS: Estimated Average Glucose 114 mg/dL; Hemoglobin A1c % 5.6 % (<6.0)
[2023-10-11 12:05] LABS: Alanine Aminotransferase 18 U/L (0-40); Anion Gap 12 (12-20); Aspartate Amino Transferase 20 U/L (5-37); Blood Urea Nitrogen 15 mg/dL (9-16); Calcium 9.6 mg/dL (8.4-10.2); Carbon Dioxide 29 mmol/L (22-29); Chloride 101 mmol/L (96-108); Cholesterol 148 mg/dL (<200); Estimated Glomerular Filt Rate > 60; Glucose Fasting 136 mg/dL (60-99); HDL Cholesterol 43 mg/dL (>40); LDL Cholesterol Calculated 85 mg/dL (<100); Potassium 4.4 mmol/L (3.3-5.1); Sodium 138 mmol/L (135-145); Triglycerides 102 mg/dL (<150)
[2023-10-11 12:09] LABS: Vitamin D 25-OH Total 21.7 ng/mL (>30)
[2023-10-11 12:16] LABS: PSA,Total (Free>4and<10) 1.75 ng/mL (0.00-4.00)
== END 2023-10-11 06:59 | disposition home or self-care (01) ==
LOC: HO.HMGCLDS 06:58
PROVIDERS: PCP Internal Medicine; Visit Provider Internal Medicine
DX: Z00.01 Encounter for general adult medical examination with abnormal findings (principal); I10 Essential (primary) hypertension; R73.01 Impaired fasting glucose; N28.89 Other specified disorders of kidney and ureter; Z12.5 Encounter for screening for malignant neoplasm of prostate
CPT/HCPCS: 36415; 80048; 80061; 82306; 83036; 84153; 84450; 84460

== ENCOUNTER 2023-11-01 09:39 | Outpatient (REF) | payer MEDICARE, SELFPAY ==
--- NOTE | ~2023-11-01 | US_ITS ---
EXAMINATION: US RETROPERITONEAL LIMITED (RENAL ONLY) CLINICAL INFORMATION: Right renal mass. COMPARISON: CT abdomen and pelvis 02/11/2020. TECHNIQUE: Real-time imaging of the kidneys. FINDINGS: RIGHT KIDNEY: 10.3 x 5.6 x 5.4 cm (SAG x AP x TRV). The kidney is normal in size, contour, and echogenicity. Renal cortical thickness is normal. No renal calculi or hydronephrosis. At the lower pole, a 2.4 x 1.5 x 2.3 cm mass is seen, with associated color Doppler flow. On 02/23/2020, this measured 1.3 x 1.2 cm. LEFT KIDNEY: 12.3 x 5.7 x 5.6 cm (SAG x AP x TRV). The kidney is normal in size, contour, and echogenicity. Renal cortical thickness is normal. No calculi or focal parenchymal lesions. No hydronephrosis. US/US renal BI IMPRESSION: A 2.4 cm in maximal diameter right renal lower pole mass is seen, increased from 02/11/2020. Continued Urology evaluation and management is recommended.
== END 2023-11-01 09:40 | disposition home or self-care (01) ==
LOC: HO.HMGCX 09:39
PROVIDERS: PCP Internal Medicine; Visit Provider Internal Medicine
DX: N28.89 Other specified disorders of kidney and ureter (principal)
CPT/HCPCS: 76775

== ENCOUNTER 2024-07-03 10:02 | Outpatient (AMB) | payer MEDICARE, SELFPAY ==
--- NOTE | 2024-07-03 10:16 | AM.OFFWIN_ITS ---
Intake Vital Signs 07/03/24 10:17 Height 5 ft 10 in Weight 175 lb BMI 25.1 BP 134/80 Blood Pressure Location Rt brachial Position Sitting Pulse 68 Pulse Source Pulse Oximeter Pulse Oximetry (%) 98 Oxygen Delivery Method Room Air Intake Visit Reasons: PE-rt ear side swollen Intake Note: Patient here fir lump by right ear that has been present for about 2 weeks and getting bigger Patient Tobacco Use Status: Current everyday Tobacco user Allergies No Known Allergies [No Known Allergies*] Allergy (Verified 07/03/24 10:18) Do you need a note to return to daycare/school/sports/work: No HPI HPI Comments History of Present Illness Details Patient is a 78-year-old male complaining on the lump on the side of his face of the last 2 weeks. He states it is not really painful and if he pushes on it higher enough, it could be painful. He denies any bug bites or drainage from the area. [facility] Medical History Annual visit for general adult medical examination with abnormal findings Right renal mass Impaired fasting glucose Tubular adenoma of colon Smoker unmotivated to quit Monoclonal gammopathy Alcohol use disorder Waldenstrom macroglobulinemia History of subdural hematoma (post traumatic) Essential hypertension Surgical History No pertinent past surgical history Family History Father History of heart attack CVD (cardiovascular disease) Maternal Grandfather Diabetes mellitus Maternal Grandmother Colon cancer Paternal Grandfather History of heart attack Sister No problems noted. Sister No problems noted. Sister No problems noted. Son No problems noted. Son No problems noted. Daughter No problems noted. Daughter No problems noted. Other Substance abuse Social History Household Members: Spouse and Significant Other Housing: House Patient Tobacco Use Status: Current everyday Tobacco user Tobacco use type: Cigarette Cigarette Packs Per Day: 0.5 Years Smoked: 51 e-Cigarette/Vaping Use: Never Used Second Hand Smoke Exposure: No service: No Current occupational status: retired Current occupation: [employer] Cognitive needs: No Hearing needs: No Vision needs: Yes Review of Systems Const All systems reviewed & are unremarkable except as noted in HPI and below Physical Exam Vital Signs: Last Vital Signs Pulse 68 07/03/24 10:17 BP 134/80 07/03/24 10:17 Pulse Ox 98 07/03/24 10:17 Oxygen Delivery Method Room Air 07/03/24 10:17 BMI result Body Mass Index 25.1 Const General: cooperative, healthy appearing, comfortable, no acute distress and well developed Orientation/consciousness: patient oriented x3 Limitations: no limitations HEENT Head: Yes normal to inspection Ears: hearing grossly normal bilaterally General nose exam: Normal external nose present Face and sinus: Yes normal facial exam Eyes General: appearance normal, both eyes and all related structures Neck Neck: Yes normal visual inspection and Yes full ROM Resp Effort & Inspection: normal respiratory effort and able to speak in complete sentences Skin Other: Right side, inferior to right ear, patient has 1.5 cm firm mobile lump; no signs of infection noted Neuro General: patient oriented x3 Extrem General: Yes normal to inspection Assessment & Plan Assessment & Plan (1) Lipoma: Code(s): D17.9 - Benign lipomatous neoplasm, unspecified Qualifiers: Lipoma location: head Qualified Code(s): D17.0 - Benign lipomatous neoplasm of skin and subcutaneous tissue of head, face and neck Plan: Sent referral to [facility] for confirmation and possible removal of lipoma. Reassured patient that as long as it is not bothering him and it is not growing, he does not necessarily need to remove it Plan See above Orders: Referrals Dermatology Referral D17.9 - Benign lipomatous neoplasm, unspecified Coding Level of Care Code Est Pt Level 3 (07525) Diagnoses Lipoma of head D17.0 Lipoma location: head
[2024-07-03 10:17] VITALS: BP 134/80; PULSE 68; O2SAT 98; BMI 25.1
== END 2024-07-03 10:46 | disposition home or self-care (01) ==
PROVIDERS: PCP Internal Medicine; Visit Provider Physician Assistant
DX: D17.0 Benign lipomatous neoplasm of skin and subcutaneous tissue of head, face and neck (principal)
CPT/HCPCS: 99213

== ENCOUNTER 2024-10-09 13:47 | Outpatient (AMB) | payer MEDICARE, SELFPAY ==
[2024-10-09 14:05] VITALS: BP 110/60; PULSE 84; O2SAT 96; BMI 25.4
--- NOTE | 2024-10-09 14:05 | A.OFFPC_ITS ---
Vital Signs 10/09/24 14:05 Height 5 ft 10 in Weight 177 lb BMI 25.4 BP 110/60 Blood Pressure Location Lt brachial Position Sitting Pulse 84 Pulse Source Pulse Oximeter Pulse Oximetry (%) 96 Oxygen Delivery Method Room Air Intake Visit Reasons: PE Intake Note: Pt is here today for her PE: last colonocopy 11/15/18 Allergies No Known Allergies [No Known Allergies*] Allergy (Verified 10/09/24 14:43) Medication List - Last Reconciled 10/09/24 by Shruti Landon MD cholecalciferol (vitamin D3) 25 mcg PO DAILY lisinopril 5 mg PO QAM 90 days omega-3 fatty acids (Fish Oil Concentrate) 1,000 mg PO DAILY Tobacco use date assessed: 10/09/24 Fall risk assessment: No Falls in past year Last assessed Fall Risk: 10/09/24 Dental Screening Dental Screen Date: 10/09/24 Did you have a dental visit in the last 12 months?: No Did you have a dental problem in the last 6 months where you did not have access to dental care?: No Was dental information given to patient?: Patient has dentist HPI PE HPI Details The patient is a 78-year-old male presenting with a routine physical examination. He currently takes lisinopril 5 mg for essential hypertension with blood pressure controlled. He however continues to smoke, reporting a consumption of 5 to 10 cigarettes daily, but has quit drinking , sober now for at least 2 years . He has a significant past medical history of a renal mass, 2.3 cm right lower pole suspicious for renal cell carcinoma, initially identified by Dr. Glover . He recently saw him 07/18/2024, and would like for him to have a consultation with Dr. Jonathan Toledo, and decide whether he wants to proceed with percutaneous biopsy and possible cryotherapy. The patient has an elevated blood glucose level, noted at 136 mg/dL, though his A1c remains within normal limits. Additionally, he has a history of a tubular adenoma in 2018, for which a colonoscopy is due in gain this year , sees Dr. Alicia. [facility] Medical History (Updated 10/09/24 @ 15:08 by Shruti Landon MD) Smoking addiction Vitamin D deficiency Annual visit for general adult medical examination with abnormal findings Right renal mass Impaired fasting glucose Tubular adenoma of colon Smoker unmotivated to quit Monoclonal gammopathy Alcohol use disorder Waldenstrom macroglobulinemia History of subdural hematoma (post traumatic) Essential hypertension Surgical History No pertinent past surgical history Family History Father History of heart attack CVD (cardiovascular disease) Maternal Grandfather Diabetes mellitus Maternal Grandmother Colon cancer Paternal Grandfather History of heart attack Sister No problems noted. Sister No problems noted. Sister No problems noted. Son No problems noted. Son No problems noted. Daughter No problems noted. Daughter No problems noted. Other Substance abuse Social History Household Members: Spouse and Significant Other Housing: House Patient Tobacco Use Status: Current everyday Tobacco user Tobacco use type: Cigarette Cigarette Packs Per Day: 0.5 Years Smoked: 51 e-Cigarette/Vaping Use: Never Used Second Hand Smoke Exposure: No service: No Current occupational status: retired Current occupation: [employer] Cognitive needs: No Hearing needs: No Vision needs: Yes Questionnaire PHQ-9 Over the last 2 weeks, how often have you been bothered by any of the following problems? 1. Little interest or pleasure in doing things: not at all 2. Feeling down, depressed, or hopeless: not at all 3. Trouble falling or staying asleep, or sleeping too much: not at all 4. Feeling tired or having little energy: not at all 5. Poor appetite or overeating: not at all 6. Feeling bad about yourself - or that you are a failure or have let yourself or your family down: not at all 7. Trouble concentrating on things, such as reading the newspaper or watching television: not at all 8. Moving or speaking so slowly that other people could have noticed. Or the opposite - being so fidgety or restless that you have been moving around a lot more than usual: not at all 9. Thoughts that you would be better off or of hurting yourself in some way: not at all Total score: 0 Depression Screening Interpretation: Negative Depression Screening Done: Yes 22113 - PHQ-9 Billing: Yes Source: Developed by Drs. Deshawn Brooks, Bharti Oglesby, Torres Marrero and colleagues, with an educational nancy from [employer]. Thrive Questionnaire Date Thrive assessed: 10/09/24 I am a: Patient What is your living situation today?: I have a steady place to live Within the past 12 months, did the food you bought not last and you didn't have the money to get more?: Never true Within the past 12 months, did you worry whether your food would run out before you got money to buy more?: Never true Do you have trouble paying for medicines?: No Do you have trouble getting transportation to medical appointments?: No Do you have trouble paying your heating and electricity bill?: No Do you have trouble taking care of your child, family member or friend?: No Do you have trouble with day-to-day activities such as bathing, preparing meals, shopping, managing finances, etc.?: No Are you currently unemployed and looking for a job?: No Are you interested in more education?: No THRIVE Score: 0 CHRISTINA-7 AMB Questionnaire CHRISTINA-7 Date CHRISTINA - 7 assessed: 10/09/24 Feeling nervous, anxious, or on edge: 0 = Not at all Not being able to stop or control worryin = Not at all Worrying too much about different things: 0 = Not at all Trouble relaxin = Not at all Being so restless that it is hard to sit still: 0 = Not at all Becoming easily annoyed or irritable: 0 = Not at all Feeling afraid as if something awful might happen: 0 = Not at all Total CHRISTINA-7 score (0-4 normal; 5-9 mild; 10-14 moderate; 15-21 severe): 0 Source: Developed by Drs. Deshawn Brooks, Bharti Oglesby, Torres Marrero and colleagues, with an educational nancy from [employer]. CHRISTINA-7 Assessment Billing CHRISTINA-7 Assessment Tool: CHRISTINA-7 Assessment 74837 Review of Systems Const Denies body aches, Denies fatigue, Denies fever(s), Denies headache(s) and Denies weakness Eyes Details: Sees his insole reinforcer yearly Denies change in vision ENT Reports Normal hearing present, Denies dizziness, Denies headache(s) and Denies nasal congestion Card Denies chest pain, Denies lightheadedness, Denies palpitations and Denies dyspnea Resp Denies chest congestion, Denies cough, Denies dyspnea and Denies wheezing GI Denies abdominal pain, Denies change in bowel habits and Denies heartburn Reports no additional complaints Musc Denies arthralgias, Denies joint swelling and Denies stiffness Skin/Breast Denies lesions and Denies rash Neuro Reports Normal hearing present, Denies dizziness, Denies headache(s), Denies Sensory deficit (Neuro) and Denies weakness Psych Reports no additional complaints Endo Denies fatigue, Denies polydipsia, Denies polyuria and Denies palpitations Aly/Lymph Denies easy bruising Aller/Immun Denies seasonal rhinorrhea and Denies wheezing Physical exam (Primary Care) Vital Signs: Last Vital Signs Pulse 84 10/09/24 14:05 BP 110/60 10/09/24 14:05 Pulse Ox 96 10/09/24 14:05 Oxygen Delivery Method Room Air 10/09/24 14:05 BMI result Body Mass Index 25.4 Tobacco/Smoking Status: Tobacco use Status Tobacco use date assessed 10/09/24 10/09/24 14:07 Patient Tobacco Use Status Current everyday Tobacco 10/09/24 14:07 Tobacco use type Cigarette 10/09/24 14:07 e-Cigarette/Vaping Use Never Used 10/09/24 14:07 PHQ-9: PHQ-9 Score PHQ-9: Total score 0 10/09/24 14:54 Depression Screening Interpretation: Negative Thrive Assessment: Date of Thrive Assessment Date Thrive assessed 10/09/24 10/09/24 14:07 Advance Care Planning discussion: Exists, not on file Const General: cooperative, no acute distress and alert Orientation/consciousness: patient oriented x3 Limitations: No altered mental status HENMT Head: Yes normal to inspection General nose exam: Normal external nose present Face and sinus: Yes face symmetric Mouth: Normal oral and palatal mucosa present and moist mucous membranes Eyes General: appearance normal, both eyes and all related structures Neck Neck: Yes full ROM and Yes no lymphadenopathy Thyroid: Thyroid normal Resp Effort & Inspection: normal respiratory effort and able to speak in complete sentences Auscultation: clear to auscultation bilaterally Cardio Jugular venous distension: no JVD Rate: regular rate Rhythm: regular rhythm Heart sounds: S1 normal heart sound present and S2 normal heart sound present GI Palpation (GI): Soft to palpation, nontender, no guarding and no masses Auscultation: normal bowel sounds General: Yes no CVA tenderness Back/Spine/Pelvis Back: no CVA tenderness and No back tenderness Skin General skin exam: no rashes or lesions noted Neuro General: patient oriented x3, gait normal, moves all extremities, no focal motor deficits and CN's II-XI intact bilaterally Cranial nerves: Yes Normal hearing present Cognition (Neuro): normal cognition Gait exam (Neuro): Normal gait present Motor exam (neuro): 5/5 motor strength present throughout Sensory Exam: No Sensory deficit (Neuro) Extrem General: Yes normal to inspection, Yes full ROM, Yes no pedal edema and Yes normal gait Psych Appearance: grossly normal and well kempt Mental Status: mental status grossly normal Speech and movement: Normal speech and movement present Affect: normal affect Attitude: cooperative Coding Level of Care Code Est Pt Prev Care >65y(76731) Diagnoses Annual visit for general adult medical examination with abnormal findings Z00. Tubular adenoma of colon D12.6 Essential hypertension I10 Impaired fasting glucose R73.01 Vitamin D deficiency E55.9 Encounter for screening for malignant neoplasm of prostate Z12.5 Additional Codes PHQ-9 - 22594 - PHQ-9 Billing: Yes ([id number]) CHRISTINA-7 Assessment Billing - CHRISTINA-7 Assessment Tool: CHRISTINA-7 Assessment 96444 ([id number]) Vital Signs *Quality* - Advance Care Planning discussion: Exists, not on file ([id number]) Assessment & Plan Assessment & Plan (1) Annual visit for general adult medical examination with abnormal findings: Code(s): Z00.01 - Encounter for general adult medical examination with abnormal findings Category: Medical (2) Tubular adenoma of colon: Code(s): D12.6 - Benign neoplasm of colon, unspecified Category: Medical (3) Essential hypertension: Code(s): I10 - Essential (primary) hypertension Category: Medical (4) Impaired fasting glucose: Code(s): R73.01 - Impaired fasting glucose Category: Medical (5) Vitamin D deficiency: Code(s): E55.9 - Vitamin D deficiency, unspecified Category: Medical (6) Encounter for screening for malignant neoplasm of prostate: Code(s): Z12.5 - Encounter for screening for malignant neoplasm of prostate Plan - Essential Hypertension: Continue lisinopril 5 mg daily; prescription refilled with three renewals. - Tobacco Use Disorder: Discussed smoking cessation; advised to inform when ready for support. - Renal Mass: Follow-up with Dr. Glover , who referred him to see Dr Jonathan Toledo for further evaluation and management. - Lipoma: Follow-up with dermatology for reevaluation in November. - Tubular Adenoma: Scheduled colonoscopy in 2023, referral to Dr. Alicia. - Hyperglycemia: Fasting blood glucose and A1c to be rechecked; dietary recommendations discussed. - Annual lung cancer screening to be reinstated with low-dose CT scans. Patient was informed and verbally consented to the use of an ambient scribe for clinic note documentation during this visit. Orders: Orders Basic Metabolic Panel Fasting 10/09/24 E55.9 - Vitamin D deficiency, unspecified, I10 - Essential (primary) hypertension, R73.01 - Impaired fasting glucose, Z00.01 - Encounter for general adult medical examination with abnormal findings, Z12.5 - Encounter for screening for malignant neoplasm of prostate, Z13.220 - Encounter for screening for lipoid disorders Lipid Panel 10/09/24 E55.9 - Vitamin D deficiency, unspecified, I10 - Essential (primary) hypertension, R73.01 - Impaired fasting glucose, Z00.01 - Encounter for general adult medical examination with abnormal findings, Z12.5 - Encounter for screening for malignant neoplasm of prostate, Z13.220 - Encounter for screening for lipoid disorders Hemoglobin A1c 10/09/24 E55.9 - Vitamin D deficiency, unspecified, I10 - Essential (primary) hypertension, R73.01 - Impaired fasting glucose, Z00.01 - Encounter for general adult medical examination with abnormal findings, Z12.5 - Encounter for screening for malignant neoplasm of prostate, Z13.220 - Encounter for screening for lipoid disorders Alanine Aminotransferase 10/09/24 E55.9 - Vitamin D deficiency, unspecified, I10 - Essential (primary) hypertension, R73.01 - Impaired fasting glucose, Z00.01 - Encounter for general adult medical examination with abnormal findings, Z12.5 - Encounter for screening for malignant neoplasm of prostate, Z13.220 - Encounter for screening for lipoid disorders PSA,Total (Free>4and<10) 10/09/24 E55.9 - Vitamin D deficiency, unspecified, I10 - Essential (primary) hypertension, R73.01 - Impaired fasting glucose, Z00.01 - Encounter for general adult medical examination with abnormal findings, Z12.5 - Encounter for screening for malignant neoplasm of prostate, Z13.220 - Encounter for screening for lipoid disorders Vitamin D 25-OH Total 10/09/24 E55.9 - Vitamin D deficiency, unspecified, I10 - Essential (primary) hypertension, R73.01 - Impaired fasting glucose, Z00.01 - Encounter for general adult medical examination with abnormal findings, Z12.5 - Encounter for screening for malignant neoplasm of prostate, Z13.220 - Encounter for screening for lipoid disorders Referrals Lung Cancer Screening Referral F17.200 - Nicotine dependence, unspecified, uncomplicated Gastroenterology Referral D12.6 - Benign neoplasm of colon, unspecified Medications: Refilled lisinopril 5 mg PO QAM 90 days 90 tabs 3RF I10 - Essential (primary) hypertension
== END 2024-10-09 15:12 | disposition home or self-care (01) ==
PROVIDERS: PCP Internal Medicine; Visit Provider Internal Medicine
DX: Z00.01 Encounter for general adult medical examination with abnormal findings (principal); D12.6 Benign neoplasm of colon, unspecified; I10 Essential (primary) hypertension; R73.01 Impaired fasting glucose; E55.9 Vitamin D deficiency, unspecified; Z12.5 Encounter for screening for malignant neoplasm of prostate; Z00.00 Encounter for general adult medical examination without abnormal findings

== ENCOUNTER → 2024-10-09 13:47 | Outpatient (BNVA) | payer MEDICARE, SELFPAY | PROVIDERS: PCP Internal Medicine; Visit Provider Internal Medicine | DX: Z00.01 Encounter for general adult medical examination with abnormal findings (principal); D12.6 Benign neoplasm of colon, unspecified; I10 Essential (primary) hypertension; R73.01 Impaired fasting glucose; E55.9 Vitamin D deficiency, unspecified | CPT/HCPCS: 96127; 99397 ==

== ENCOUNTER → 2025-01-21 07:43 | Outpatient (REF) | payer MEDICARE, SELFPAY ==
--- NOTE | 2025-01-21 07:50 | CA_ITS ---
Transthoracic Echocardiogram Patient (Last, First, Middle): Huy Mendez A Gender: Male Date of : 1945 Age: 79 Procedure Date: 01/21/2025 Procedure Type: Transthoracic Echocardiogram Location: OP Height: 177.8 cm Weight: 81.65 kg BSA: 2.00 m2 Heart Rate: 71 bpm BP: 116 / 68 mmHg Final Assembly Worker: SB Referring MD: Olga Lee MD Observer Gravity Prospecting: Margarito Kelsey MD Symptoms: Pre chemo evaluation Study Quality: Adequate ECG Rhythm: Sinus Conclusions: - 1. Normal LV ejection fraction of 55-60% with impaired relaxation filling pattern 2. Normal cardiac valvular Dopplers 3. Normal RV systolic pressure 4. No pericardial effusion Findings Left Ventricle Normal left ventricular size, thickness, and systolic function. The visually estimated ejection fraction is between 55-60%. Spectral Doppler is indicative of an impaired relaxation filling pattern. E/E prime ratio is between 8 and 15 consistent with indeterminate filling pressures. Peak GKS is unreliable due to improper tracking. Right Ventricle Normal right ventricular cavity size and systolic function. Atria The left atrium is normal in size. There is no evidence of interatrial shunt. The right atrium is normal in size. Aortic Valve The aortic valve structure and function is likely normal. There is no aortic valve stenosis. There is no aortic valve regurgitation. Mitral Valve Likely normal mitral valve structure and function. There is no mitral valve regurgitation. There is no mitral valve stenosis. Pulmonic Valve The pulmonic valve was not well visualized. Tricuspid Valve Likely normal tricuspid valve structure and function. There is mild tricuspid valve regurgitation. The right ventricular systolic pressure is normal. The right ventricular systolic pressure is 33 mmHg. Indeterminate right atrial pressure. There is no evidence of pulmonary hypertension. Great Vessels All visible segments of the aorta are normal in size. The pulmonary artery was not well visualized. There is no dilatation of the ascending aorta measuring 3.30 cm. Venous The inferior vena cava is normal in size and collapses greater than 50% with inspiration. Pericardium/Pleural There is no evidence of pericardial effusion. Prior Study Comparison No prior study available for comparison. Measurements 2D Linear Measurements IVSd: 1.15 0.6-0.9/0.6-1.0 cm LVIDd: 4.45 3.9-5.3/4.2-5.9 cm LVIDd Index: 2.23 2.4-3.2/2.2-3.1 cm/m2 LVIDs: 2.52 2.0-3.6 cm LVPWd: 0.69 0.7-1.1 cm LA Diam: 3.00 2.7-3.8/3.0-4.0 cm LAIDs Index: 1.50 1.5-2.3 cm/m2 LV Mass: 167.04 67-162/88-224 g LV Mass Index: 83.52 43-95/49-115 g/m2 LVOT Diam: 2.10 3.0+(-)1.3 cm 2D Systolic Function EF 4C: 61.60 >55% EF 2C: 52.70 >55% EF BiP: 57.30 >55% Mitral Valve MV Pk E: 0.67 MV PK A: 0.80 MV Decel Time: 228.00 E/A: 0.80 E'Lateral: 7.51 E'Medial: 6.20 E/E' Med: 10.80 E/E' Lat: 8.90 PHT: 67.00 MVA PHT: 3.28 Decel Karnes: 2.94 Aortic Valve AoV Pk Dago: 1.31 AoV Pk Grad: 7.00 ELLY: 2.57 LVOT LVOT Pk Dago: 0.97 LVOT Mn Dago: 0.70 LVOT VTI: 0.21 LVOT Pk Grad: 4.00 LVOT Mn Grad: 2.00 LVOT Diam: 2.10 LVOT Area: 3.46 Diastolic Function MV Pk E: 0.67 MV Pk A: 0.80 E/A: 0.80 E'Medial: 6.20 E/E' Med: 10.80 E' Laterial: 7.51 E/E' Lat: 8.90 Right Ventricle TAPSE (mm): 21.40 TVS' Dago: 12.90 Tricuspid Valve TR Pk Dago: 2.73 TR Pk Grad: 30.00 RA Press: 3.00 RVSP: 33.00 Great Vessels Aorta Sinus of Valsalva: 3.40 2.0-3.5 cm Ao Asc: 3.30 2.1-3.4 cm Pulmonary Veins Pulm Vein S/D 1.50 Pulmonary Valve PV Pk Dago: 1.03 Peak PV Grad: 4.00 Updated in Other Vendor System with Status of Final Margarito Kelsey MD electronically signed on 01/21/2025 1:07:23 PM with status of Final
--- NOTE | 2025-01-21 07:50 | ECG_ITS ---
Test Reason : waldenstrom Blood Pressure : */* mmHG Vent. Rate : 75 BPM Atrial Rate : 75 BPM P-R Int : 220 ms QRS Dur : 100 ms QT Int : 358 ms P-R-T Axes : 77 -46 64 degrees QTcB Int : 399 ms Sinus rhythm with 1st degree A-V block Left anterior fascicular block Abnormal ECG No previous ECGs available Referred By: Olga Lee Electronically Signed By: Umer Merino
== END ==
LOC: HO.CARD 07:43
PROVIDERS: PCP Internal Medicine; Visit Provider Internal Medicine
DX: C88.00 Waldenstrom macroglobulinemia not having achieved remission (principal); I44.0 Atrioventricular block, first degree; R94.31 Abnormal electrocardiogram [ECG] [EKG]
CPT/HCPCS: 93005; 93306

== ENCOUNTER → 2025-01-21 07:50 | Outpatient (BNV) | payer MEDICARE, SELFPAY | PROVIDERS: PCP Internal Medicine; Visit Provider Internal Medicine Cardiovascular Disease | DX: I44.0 Atrioventricular block, first degree (principal); I44.4 Left anterior fascicular block | CPT/HCPCS: 93010 ==

== ENCOUNTER 2025-02-03 11:42 | Outpatient (REF) | payer MEDICARE, SELFPAY ==
--- OUTSIDE RECORDS SUMMARY | 2025-02-03 14:09 | XMS_ITS | Clinical Summary ---
[facility] Organization [facility] [address] [place] [address] Care Team Providers Care Concrete Mixer Operator Helper Name Role Phone Unavailable Primary Care Provider Unavailabl e Social History Tobacco Use Types Packs/Day Years Used Date Smoking Tobacco: Never Assessed Sex and Gender Information Value Date Recorded Sex Assigned at Not on file Legal Sex Male 1:33 PM EST Gender Identity Not on file Sexual Orientation Not on file Plan of Treatment Health Maintenance Due Date Last Done Comments DTaP,Tdap,and Td Vaccines (1 - Tdap) 1963 Pneumococcal Vaccine: 50+ Ye ars (1 of 1 - PCV) 1994 Zoster Vaccines (1 of 2) 1994 RSV Immunization Patients 60 + Years Old (1 - 1-dose 75+ series) 2019 COVID-19 Vaccine ( - 2023-2 5 season) 2024 Influenza Vaccine (#1) 2024 Cholesterol Screening (Lipid Panel) 08/29/2024 Depression Screening 08/29/2024 Falls Risk Assessment 08/29/2024 Social Influencers of Health Screening 08/29/2024 HIB Vaccines Aged Out No longer eligi ble based on patient's age to complete this topic HPV Vaccines Aged Out No longer eligi ble based on patient's age to complete this topic Hepatitis A Vaccines Aged Out No long er eligible based on patient's age to complete this topic Hepatitis B Vaccines Aged Out No long er eligible based on patient's age to complete this topic IPV Vaccines Aged Out No longer eligi ble based on patient's age to complete this topic MMR Vaccines Aged Out No longer eligi ble based on patient's age to complete this topic Meningococcal ACWY Vaccine Aged Out N o longer eligible based on patient's age to complete this topic Meningococcal B Vacine Aged Out No lo nger eligible based on patient's age to complete this topic RSV Immunization Patients Un abel 20 months Aged Out No longer eligible b ased on patient's age to complete this topic Varicella Vaccines Aged Out No longer eligible based on patient's age to complete this topic
== END 2025-02-03 11:43 | disposition home or self-care (01) ==
LOC: HO.PET 11:42
PROVIDERS: PCP Internal Medicine; Visit Provider Internal Medicine
DX: Z13.89 Encounter for screening for other disorder (principal)

== ENCOUNTER 2025-03-03 08:09 | Outpatient (REF) | payer MEDICARE, SELFPAY ==
--- NOTE | ~2025-03-03 | PE_ITS ---
EXAMINATION: FLUORINE-18 FDG PET/CT SCAN CLINICAL INFORMATION: Waldenstrom macroglobulinemia for restaging TECHNIQUE: 62 minutes following the intravenous administration of 16.4 mCi of fluorine 18 FDG, images from the skull base to proximal thighs were obtained using a combined PET/CT scanner with CT scan based attenuation correction. No oral or intravenous contrast was administered. Transverse, coronal, sagittal, and volume reconstruction projections were obtained. The patient's blood glucose as determined by a finger stick, was 60 mg/dL immediately prior to injection. The radiotracer was injected intravenously through left antecubital vein, without any complications. Total CT exam dose-length product 702 mGy-cm. * These CT images were obtained using dose optimization techniques as appropriate, variously including the following: Automated exposure control * Adjustment of mA and/or kV according to patient size (this includes techniques or standardized protocols for targeted exams where dose is matched to indication/reason for exam; i.e. extremities or head) * Use of iterative reconstruction technique COMPARISON: None available. FINDINGS: HEAD AND NECK: No abnormal radiotracer uptake. No large intracranial hemorrhage, acute territorial infarct or significant shift of midline structures. CHEST: Ports and Devices: None Lungs: No abnormal radiotracer activity seen. On CT there is mild atelectasis or scarring left lung base. No nodule or consolidation seen. Pleura: No significant pleural effusion. Lymph Nodes: No tracer-avid mediastinal, hilar or internal mammary or axillary lymphadenopathy. Mediastinum: There is no significant pericardial effusion/thickening. Breasts/Chest Wall: No abnormal radiotracer uptake. ABDOMEN/PELVIS: Liver/Biliary System: No focal tracer-avid liver lesion. Multiple small dependent gallstones without wall thickening. Pancreas: Normal.No pancreatic ductal dilatation seen. Spleen: No abnormal radiotracer uptake. No evidence of splenomegaly. Adrenal Glands: No abnormal radiotracer uptake. Kidneys: No hydronephrosis, hydroureter or renal calculi bilaterally. Bowel: Moderate increased activity seen throughout the entire stomach. There is nondistended stomach with mild gastric wall thickening on CT. There is scattered stool, diverticuli and gas seen throughout the colon without significant. No FDG activity seen Lymph Nodes: No tracer avid retroperitoneal, mesenteric or pelvic and/or groin lymphadenopathy. Pelvic Organs: The urinary bladder is underdistended. MUSCULOSKELETAL: There is mild FDG activity seen throughout the thoracic spine and lower lumbar spine. The mid lumbar and sacral spine appears unremarkable VASCULAR: Unremarkable PET/PET CT fusion skull to thigh IMPRESSION: No abnormal metabolic activity seen in the chest, abdomen and pelvis especially no abnormal lymph node activity or lymphadenopathy on CT seen. There is nonspecific mild activity seen in the entire thoracic and lower lumbar spine likely secondary to regenerative bone marrow. No focal intense bone marrow activity seen. Nonspecific moderate activity seen along the gastric wall. Correlate with clinical exam. Electronically signed by: Satish Mcnulty MD 03/03/2025 04:56 PM EDT
--- OUTSIDE RECORDS SUMMARY | 2025-03-03 08:20 | XMS_ITS | Clinical Summary ---
Author Organization [facility] Address [address] [place] [address] Care Team Providers Care Web Design Specialist Name Role Phone Unavailable Primary Care Provider [...] Vaccines (1 of 2) 1994 RSV Immunization Adult Patie nts (1 - 1-dose 75+ series) 2019 COVID-19 Vaccine ( - 2023-2 5 season) 2024 Cholesterol Screening (Lipid Panel) 08/29/2024 Depression Screening 08/29/2024 Falls Risk Assessment 08/29/2024 Social Influencers of Health Screening 08/29/2024 Influenza Vaccine (Season Ended) 2025 HIB Vaccines Aged Out No longer eligi [...] age to complete this topic Meningococcal B Vaccine Aged Out No l onger eligible based on patient's age to complete this topic RSV Immunization Patients Un abel 20 months Aged Out No longer eligible b ased on patient's age to complete this topic Varicella Vaccines Aged Out No longer eligible based on patient's age to complete this topic
== END 2025-03-03 08:10 | disposition home or self-care (01) ==
LOC: HO.PET 08:09
PROVIDERS: PCP Internal Medicine; Visit Provider Internal Medicine
DX: Z13.89 Encounter for screening for other disorder (principal)

== ENCOUNTER → 2025-04-03 13:50 | Outpatient (BNV) | payer MEDICARE, SELFPAY | PROVIDERS: PCP Internal Medicine; Visit Provider Internal Medicine Cardiovascular Disease | DX: I44.0 Atrioventricular block, first degree (principal); I45.10 Unspecified right bundle-branch block | CPT/HCPCS: 93010 ==

== ENCOUNTER 2025-09-28 08:27 | Outpatient (AMB) | payer MEDICARE, SELFPAY ==
--- OUTSIDE RECORDS SUMMARY | 2025-02-11 08:20 | XMS_ITS ---
Author Organization [facility] Address [address] [place] [id number] Care Team Providers Care Mine Laborer Name Role Phone Barbi SHI, Shruti Primary Care Provider Deshawn Lopez [phone] REASON FOR VISIT Patient presents today for a colon screening Encounters Encounter Location Date Provider Diagnosis [facility] [address] [place] [phone] 02/11/2025 Deshawn Alicia Plan Of Treatment No Information Progress Notes * BG MEN[birth year]DOB:[birth year] (79 yo M)Acc No.[id number]:02/11/2025 Progress Notes Patient: BG MORTON Provider: Mandi Alicia MD :1945 A ge:79 Y S ex:Male Date:02/11/2025 Address:[facility] [address] [id number] Pcp:Shruti Landon MD Subjective: * Chief Complaints: * P atient presents today for a colon screening Billing Information: * Procedure Codes: * The named appointment provid er may or may not be the originator of this progress note, and it is not deemed complete until electronically signed by the appointment provider. Sign off status: Pending * Provider: Mandi Alicia MD Date: 0 02/11/2025 Generated for Naomii bhavna/Allieg/eTransmitting on: 2024 08:33 AM EST
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
--- OUTSIDE RECORDS SUMMARY | 2025-09-28 08:33 | XMS_ITS | Clinical Summary ---
Author Organization [facility] Address [address] [address] Phone Care Team Providers Care Manufacturing Operator Name Role Phone Shruti Landon MD Primary Care Provider Olga Lee MD Unavailable [phone] Allergies No known active allergies Medications oxybutynin (DITROPAN-XL) 10 MG 24 hr tablet Take 10 mg by mouth every morning. 03/09/2020 Active tamsulosin (FLOMAX) 0.4 mg Cap TAKE 1 CAPSULE BY MOUTH EVERYDAY AT BEDTIME 03/09/2020 Active Active Problems Problem Noted Date Diagnosed Date Chronic obstructive pulmonary disease 04/15/2020 Waldenstrom macroglobulinemia 04/15/2020 Social History Tobacco Use Types Packs/Day Years Used Date Smoking Tobacco: Never Assessed Education Answer Date Recorded Are you interested in more education? Not on jessica e 03/02/2023 Are you concerned about learning? Not on file 03/02/2023 No 03/02/2023 No 03/02/2023 Digital Access Answer Date Recorded No 03/31/2023 No 03/31/2023 No 03/31/2023 Reliable internet access at home? Not on file 03/31/2023 Device with a working camera? Not on file Sex and Gender Information Value Date Recorded Sex Assigned at Male 04/09/2020 10:33 AM EDT Legal Sex Male 11:32 AM EDT Gender Identity Male 04/09/2020 10:33 AM EDT Sexual Orientation Straight 04/09/2020 10 :33 AM EDT Plan of Treatment Health Maintenance Due Date Last Done Comments LIPID PANEL 1944 DEPRESSION SCREENING 1956 SMOKING Hx and SMOKELESS TOBACCO SCREENING 1957 ZOSTER VACCINES (1 of 2) 1963 PNEUMOCOCCAL VACCINES (50+ years) (2 of 2 - PPSV23, PCV20, or PCV21) 11/19/2019 09/24/2019 RSV VACCINE (1 - 1-dose 75+ series) 2019 INFLUENZA VACCINE (#1) 2025 0, 08/22/2019, 08/07/2019, Additional history exists COVID-19 VACCINE (2 - 2024- season) 2025 12/31/2020 Adult Td,Tdap Booster 03/10/2026 03/10/2016 HEPATITIS A VACCINES Aged Out No long er eligible based on patient's age to complete this topic HIB VACCINES Aged Out No longer eligi ble based on patient's age to complete this topic MENINGOCOCCAL VACCINES (ACWY) Aged Out No longer eligible based on patient's age to complete this topic MENINGOCOCCAL VACCINES (B) Aged Out N o longer eligible based on patient's age to complete this topic Medical Devices Not on file Insurance [employer] [place] [employer]ACEMENT [employer] [place] [employer] RE[employer] [place] [employer] [place] [employer] [place] [employer]AC[employer]ACEMENT Care Teams Manufacturing Operator Relationship Specialty Start Date End Date Shruti Landon MD [address] [place] [address] PCP - General Internal Medicine 02/19/20 Olga Lee MD [address] [place] [address] [email or web address] Hematology and Oncology 02/19/20 Additional Source Comments The information contained in this document represents components of the legal health record. It is not the complete legal health record.[facility]
--- OUTSIDE RECORDS SUMMARY | 2025-09-28 08:33 | XMS_ITS | Clinical Summary ---
Author Organization [facility] ity Address [address] [place] [address] Care Team Providers Care Date Night Caregiver Name Role Phone Unavailable Primary Care Provider [...] nts (1 - 1-dose 75+ series) 2019 Cholesterol Screening (Lipid Panel) 08/29/2024 Falls Risk Assessment 08/29/2024 Social Influencers of Health Screening 08/29/2024 Depression Screening 11/05/2024 COVID-19 Vaccine ( - 2024-2 6 season) 2025 Influenza Vaccine (#1) 2025 HIB Vaccines Aged Out No longer [...]
--- OUTSIDE RECORDS SUMMARY | 2025-09-28 08:33 | XMS_ITS | Patient Health Record ---
Author Organization [facility] Address [address] [place] [address] Care Team Providers Care 7Th Grade Teacher Name Role Phone Shruti Landon MD Primary Care Provider Deshawn Lopez Unavailable [phone] Allergies No Known Allergies Reason For Referral No Information Medications Medication SIG (Take, Route, Frequency, Duration) Notes Start Date End Date Status Lisinopril 5 MG Tablet Oral; Duration: 90 Days Active Fish Oil 1200 MG Capsule 2 capsule Orally Once a day Active Brukinsa 80 MG Capsule Oral; Duration: 30 Days Active Immunizations Vaccine Route Administration Date Status Comme nts Influenza Unknown 07/16/2018 Administered Influenza Unknown 08/26/2024 Administered Social History Tobacco Use: Social History Observation Description Date Details (start date - stop date) Current Smoker NA - NA Social History Drug/Alcohol: Social Info Question Answer Notes AUDIT-C (Standard) Did you have a drink containing alcohol in the past year? No Points 0 Interpretation Negative Tobacco Use: Social Info Question Answer Notes Tobacco Use/Smoking Patient is a current smoker How often do you smoke cigarettes? some days, but not every day How many cigarettes a day do you smoke? 5 or less How soon after you wake up do you smoke your first cigarette? after 60 minutes Are you interested in quitting? Thinking about quitting Additional Details Category Social Info Options Details Miscellaneous: Marital status: Occupation: Retired [employer] Section Notes: Smoker; occ. beer Smoker; occ. beer Problems Problem Type SNOMED Code ICD Code Onset Dates Problem Status W/U Status Risk Notes Problem Screening for malignant neoplasm of colon (354949467) Encounter for screening for malignant neoplasm of colon (Z12.11) Active confirmed Problem History of adenomatous polyp of colon (236295317) History of adenomatous polyp of colon (Z86.010) Active confirmed Problem Preprocedural examination (818509242269877) Preprocedural examination (Z01.818) Active confirmed Problem Long-term current use of drug therapy (347140749) Long-term use of high-risk medication (Z79.899) Active confirmed Vital Signs Temperature 98.6 degrees Fahrenheit 07/08/2025 Blood pressure diastolic 01 mm Hg 07/08/2025 Height 70 in 07/08/2025 Blood pressure systolic 001 mm Hg 07/08/2025 Weight 185.8 lbs 07/08/2025 BMI 26.66 kg/m2 07/08/2025 Encounters Encounter Location Date Provider Diagnosis [facility] [address] [place] [id number] 07/08/2025 Deshawn Alicia History of adenomato us polyp of colon Z86.010 ; Preprocedural examination Z01.818 ; Encounter for screening for malignant neoplasm of colon Z12.11 and Long-term use of high-risk medication Z79.899 [facility] [address] [place] [phone] 02/11/2025 Deshawn Alicia Assessments Encounter Date Diagnosis (ICD Code) Assessment Notes Treatment Notes Treatment Clinical Notes Section Notes 07/08/2025 History of adenomatous polyp of colon (ICD-10 - Z86.010) Overall, Bg appears very well and is not having any new or worrisome GI complaints. We did review his most recent colonoscopy from 2019 and the minimal findings of the single small tubular adenoma that was removed. Given those findings, as well as the findings on his 2011 colonoscopy with also just a minimal tubular adenoma, and his age of 79 without any ongoing worrisome GI complaints, I advised Bg and his son that I do not think he requires a follow-up screening colonoscopy at this point in time. We reviewed that current guidelines would recommend against having him undergo a colonoscopy at this point. However, I did review with Bg and his son that if anything was to change in regard to his bowel movements such as bleeding or other significant changes, I would then want him to call me so we can then reassess things at that time. However, if things remain as they are then I do not think he would need any further screening colonoscopies nor follow-up on my part. I did advise him to certainly call me if he has any problems or questions I can be of assistance with. Bg and his son were very comfortable with this plan. Thank you again for allowing me to have participated in Bg's care. I shall continue to keep you advised of his progress as needed. Please do not hesitate to contact me if I can be of any further assistance. 07/08/2025 Preprocedural examination (ICD-10 - Z01.818) Overall, Bg appears very well and is not having any new or worrisome GI complaints. We did review his most recent colonoscopy from 2019 and the minimal findings of the single small tubular adenoma that was removed. Given those findings, as well as the findings on his 2011 colonoscopy with also just a minimal tubular adenoma, and his age of 79 without any ongoing worrisome GI complaints, I advised Bg and his son that I do not think he requires a follow-up screening colonoscopy at this point in time. We reviewed that current guidelines would recommend against having him undergo a colonoscopy at this point. However, I did review with Bg and his son that if anything was to change in regard to his bowel movements such as bleeding or other significant changes, I would then want him to call me so we can then reassess things at that time. However, if things remain as they are then I do not think he would need any further screening colonoscopies nor follow-up on my part. I did advise him to certainly call me if he has any problems or questions I can be of assistance with. Bg and his son were very comfortable with this plan. Thank you again for allowing me to have participated in Bg's care. I shall continue to keep you advised of his progress as needed. Please do not hesitate to contact me if I can be of any further assistance. 07/08/2025 Encounter for screening for malignant neoplasm of colon (ICD-10 - Z12.11) Overall, Bg appears very well and is not having any new or worrisome GI complaints. We did review his most recent colonoscopy from 2019 and the minimal findings of the single small tubular adenoma that was removed. Given those findings, as well as the findings on his 2011 colonoscopy with also just a minimal tubular adenoma, and his age of 79 without any ongoing worrisome GI complaints, I advised Bg and his son that I do not think he requires a follow-up screening colonoscopy at this point in time. We reviewed that current guidelines would recommend against having him undergo a colonoscopy at this point. However, I did review with Bg and his son that if anything was to change in regard to his bowel movements such as bleeding or other significant changes, I would then want him to call me so we can then reassess things at that time. However, if things remain as they are then I do not think he would need any further screening colonoscopies nor follow-up on my part. I did advise him to certainly call me if he has any problems or questions I can be of assistance with. Bg and his son were very comfortable with this plan. Thank you again for allowing me to have participated in Bg's care. I shall continue to keep you advised of his progress as needed. Please do not hesitate to contact me if I can be of any further assistance. 07/08/2025 Long-term use of high-risk medication (ICD-10 - Z79.899) Overall, Bg appears very well and is not having any new or worrisome GI complaints. We did review his most recent colonoscopy from 2019 and the minimal findings of the single small tubular adenoma that was removed. Given those findings, as well as the findings on his 2011 colonoscopy with also just a minimal tubular adenoma, and his age of 79 without any ongoing worrisome GI complaints, I advised Bg and his son that I do not think he requires a follow-up screening colonoscopy at this point in time. We reviewed that current guidelines would recommend against having him undergo a colonoscopy at this point. However, I did review with Bg and his son that if anything was to change in regard to his bowel movements such as bleeding or other significant changes, I would then want him to call me so we can then reassess things at that time. However, if things remain as they are then I do not think he would need any further screening colonoscopies nor follow-up on my part. I did advise him to certainly call me if he has any problems or questions I can be of assistance with. Bg and his son were very comfortable with this plan. Thank you again for allowing me to have participated in Sarahs care. I shall continue to keep you advised of his progress as needed. Please do not hesitate to contact me if I can be of any further assistance. 07/08/2025 Other Call me if anything changes with the BM's such as bleeding, etc. Overall, Bg appears very well and is not having any new or worrisome GI complaints. We did review his most recent colonoscopy from 2018 and the minimal findings of the single small tubular adenoma that was removed. Given those findings, as well as the findings on his 2011 colonoscopy with also just a minimal tubular adenoma, and his age of 79 without any ongoing worrisome GI complaints, I advised Bg and his son that I do not think he requires a follow-up screening colonoscopy at this point in time. We reviewed that current guidelines would recommend against having him undergo a colonoscopy at this point. However, I did review with Bg and his son that if anything was to change in regard to his bowel movements such as bleeding or other significant changes, I would then want him to call me so we can then reassess things at that time. However, if things remain as they are then I do not think he would need any further screening colonoscopies nor follow-up on my part. I did advise him to certainly call me if he has any problems or questions I can be of assistance with. Bg and his son were very comfortable with this plan. Thank you again for allowing me to have participated in Bg's care. I shall continue to keep you advised of his progress as needed. Please do not hesitate to contact me if I can be of any further assistance. 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
--- OUTSIDE RECORDS SUMMARY | 2025-09-28 08:33 | XMS_ITS | Encounter Summary ---
Author Organization [facility] Address [address] [address] Phone Care Team Providers Care Healthcare Applications Analyst Name Role Phone Shruti Landon MD Primary Care Provider Olga Lee MD Unavailable [phone] Encounter Details Date Type Department Care Team (Late st Contact Info) Description 07/18/2024 Procedure Pass [facility] [address] [place] [address] Social History Tobacco Use Types Packs/Day Years [...] Orientation Straight 04/09/2020 10 :33 AM EDT documented as of this encounter Plan of Treatment Not on file documented as of this encounter Visit Diagnoses Not on filedocumented in this encounter Care Teams Healthcare Applications Analyst Relationship Specialty Start Date End Date Shruti Landon MD [address] [facility] [place] [address] PCP - General Internal Medicine 02/19/20 Olga Lee MD [address] [place] [address] [email or web address] Hematology and Oncology 02/19/20 documented as of this encounter Additional Source Comments The information contained in this document represents components of the legal health record. It is not the complete legal health record.[facility]
[2025-09-28 08:34] VITALS: BP 110/62; PULSE 84; O2SAT 95; BMI 26.4
== END 2025-09-28 09:43 | disposition home or self-care (01) ==
PROVIDERS: PCP Internal Medicine; Visit Provider Physician Assistant Medical
DX: Z48.02 Encounter for removal of sutures (principal); T14.8XXD Other injury of unspecified body region, subsequent encounter; L03.115 Cellulitis of right lower limb

== ENCOUNTER → 2025-09-28 08:27 | Outpatient (BNVA) | payer MEDICARE, SELFPAY | PROVIDERS: PCP Internal Medicine; Visit Provider Physician Assistant Medical | DX: S81.811D Laceration without foreign body, right lower leg, subsequent encounter (principal); L03.115 Cellulitis of right lower limb; V87.8XXD Person injured in other specified noncollision transport accidents involving motor vehicle (traffic), subsequent encounter; Z48.02 Encounter for removal of sutures | CPT/HCPCS: 99212 ==